=== PATIENT | female | born 1950 | race Caucasian/White ===

== ENCOUNTER → 2021-10-09 15:29 | Outpatient (BNVA) | payer OTHER, SELFPAY | PROVIDERS: PCP Internal Medicine; Visit Provider Psychiatry & Neurology Neurology ==

== ENCOUNTER → 2023-01-31 07:32 | Outpatient (BNVA) | payer OTHER, SELFPAY | PROVIDERS: PCP Internal Medicine; Visit Provider Psychiatry & Neurology Neurology ==

== ENCOUNTER 2023-11-08 07:32 | Outpatient (AMB) | payer OTHER, SELFPAY ==
--- NOTE | 2023-11-08 07:34 | A.OFFVIS_ITS ---
Intake Vital Signs 11/08/23 07:36 Height 5 ft Weight 170 lb BMI 33.2 BP 112/78 Blood Pressure Location Rt brachial Position Sitting Respiration 16 Pulse 64 Pulse Source Palpation Intake Visit Reasons: 6m follow up-CONF Intake Note: Pt presents for an 8 month follow up for Parkinson's disease. Chlorine Cell Tender Required: No Allergies No Known Allergies Allergy (Verified 11/08/23 07:35) Medication List - Last Reconciled 11/08/23 by Nevaeh Vera MD apixaban (Eliquis) 5 mg PO BID atorvastatin 40 mg PO DAILY buspirone 10 mg PO TID carbidopa-levodopa 25-100 mg 2 tabs PO QID 90 days celecoxib 200 mg PO DAILY PRN clindamycin HCl 600 mg PO esomeprazole magnesium (Nexium 24HR) 20 mg PO DAILY esomeprazole magnesium (Nexium 24HR) 20 mg PO DAILY furosemide 40 mg PO DAILY gabapentin 100 mg PO; qama nd q noon and 3 tabs qhs losartan 50 mg PO DAILY metoprolol succinate ER 25 mg PO DAILY multivitamin 1 tab PO DAILY ropinirole 3-4 tabs q 4.30 pm PO daily; 90 days ropinirole ER 4 mg PO DAILY HPI HPI Comments History of Present Illness Details ? 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 ??? she is on sinemet 25/100 2 tabs tid and 1 tabqhs she didnt increase the dose . ??? Has been particularly helpful with hand freezing. Continues to have tremor but is not bothered by this. Swallowing difficulty has improved. she was recently diagnosed with cardiac issues - probably failure and is on lasix now .she is scheduled for ablation for Atrial fibrillation.. ??? Says her mood has been good.she is under a lot of stress. She tries to get out (played Bingo last night). Is the primary nurse care manager for her who is wheelchair-bound. [facility] Medical History (Updated 11/08/23 @ 08:30 by Nevaeh Vera MD) Parkinson's disease without dyskinesia Seizures Hyperlipidemia Atrial fibrillation GERD (gastroesophageal reflux disease) Hyperlipidemia HTN (hypertension) Surgical History Total knee replacement status Hx of cholecystectomy Hx of hysterectomy Social History Household Members: Spouse Housing: [facility] Alcohol intake: current Alcohol intake frequency: holidays/special occasions only Patient Tobacco Use Status: Never used Tobacco Physical Exam Vital Signs: Last Vital Signs Pulse 64 11/08/23 07:36 Resp 16 11/08/23 07:36 BP 112/78 11/08/23 07:36 BMI result Body Mass Index 33.2 Const General: cooperative, healthy appearing, comfortable and no acute distress Nutritional Appearance: overweight Orientation/consciousness: patient oriented x3 HEENT Other: decreased facial expression and blink Head: Yes normal to inspection Neuro Other: Mild decreased blink and facial expression no tremors Voice- normal mild postural tremors on left Fine Finger movements - severely decreased liliya l>R Alternating hand movements - decreased liliya Hand movements - decreased liliya Foot taps- decreased liliya No cog wheel rigidity gait - good stride length General: patient oriented x3 and no focal motor deficits Cranial nerves: Yes CN's II-XII intact bilaterally, Yes Bilaterally intact EOM present, Yes Normal facial strength present and Yes Midline tongue present Coordination: [id number] test normal Assessment & Plan Assessment & Plan (1) Parkinson's disease without dyskinesia: Code(s): G20.A1 - Parkinson's disease without dyskinesia, without mention of fluctuations (2) Restless legs syndrome: Code(s): G25.81 - Restless legs syndrome Plan continue requip XR 4mg qhs and requip 0.25 mg 1- 4tabs qhs sinemet 25/100 2tabs qid Gabapentin 100mg 2 qama nd 1 noon 2 tabs qhs Medications: Changed From gabapentin 100 mg PO; qama nd q noon and 3 tabs qhs 450 caps 2RF To gabapentin 100 mg PO; 2qama nd 1q noon and 2 tabs qhs 450 caps 6RF Refilled ropinirole ER 4 mg PO DAILY 90 tabs 3RF ropinirole 3-4 tabs q 4.30 pm PO daily; 360 tabs 3RF 90 days carbidopa-levodopa 25-100 mg 2 tabs PO QID 720 tabs 3RF 90 days Coding Level of Care Code Est Pt Level 4 (40606) Diagnoses Parkinson's disease without dyskinesia G20.A1 Restless legs syndrome G25.81
[2023-11-08 07:36] VITALS: BP 112/78; PULSE 64; RESP 16; BMI 33.2
== END 2023-11-08 08:26 | disposition home or self-care (01) ==
PROVIDERS: PCP Internal Medicine; Visit Provider Psychiatry & Neurology Neurology
DX: G20.A1 Parkinson's disease without dyskinesia, without mention of fluctuations (principal); G25.81 Restless legs syndrome
CPT/HCPCS: 99214

== ENCOUNTER → 2023-11-08 07:32 | Outpatient (BNVA) | payer OTHER, SELFPAY | PROVIDERS: PCP Internal Medicine; Visit Provider Psychiatry & Neurology Neurology | DX: G25.81 Restless legs syndrome (principal) ==